=== PATIENT | female | born 1975 | race Caucasian/White ===

== ENCOUNTER 2023-10-13 20:40 | Emergency (ER) | payer OTHER ==
[~2023-10-13] VITALS: Ht 154.9 cm; Wt 79.4 kg
[2023-10-13 21:05] VITALS: BP 151/88; PULSE 57; RESP 18; TEMP 99.3; O2SAT 99
[2023-10-13 23:07] VITALS: O2SAT 99
== END 2023-10-13 22:45 | disposition home or self-care (01) ==
LOC: MED 20:40
DX: S16.1XXA Strain of muscle, fascia and tendon at neck level, initial encounter (principal); F07.81 Postconcussional syndrome; W22.8XXA Striking against or struck by other objects, initial encounter; Y93.89 Activity, other specified; Y92.89 Other specified places as the place of occurrence of the external cause; Y99.8 Other external cause status
CPT/HCPCS: 99281